=== PATIENT | male | born 2000 ===

== ENCOUNTER 2020-07-06 14:20 | Emergency (ER) | payer SELFPAY ==
[~2020-07-06] VITALS: Ht 180.3 cm; Wt 70.8 kg
[2020-07-06 14:46] LABS: BASOPHILS % (AUTO) 0 % (0-1); EOSINOPHILS % (AUTO) 1 % (1-7); LYMPHOCYTES % (AUTO) 11 % (22-44); MEAN CORPUSCULAR HEMOGLOBIN 31.9 pg (27.5-34.5); MEAN CORPUSCULAR HGB CONC 33.5 g/dL (33.2-36.2); MEAN PLATELET VOLUME 7.7 fL (7.4-10.4); MONOCYTES % (AUTO) 3 % (2-9); NEUTROPHILS % (AUTO) 86 % (42-75); PLATELET COUNT 251 x10^3/uL (130-400); RED BLOOD COUNT 4.86 x10^6/uL (4.38-5.82); RED CELL DISTRIBUTION WIDTH 12.9 % (9.4-14.8)
[2020-07-06 14:50] LABS: MD NO
[2020-07-06 14:55] LABS: ALANINE AMINOTRANSFERASE 16 U/L (12-78); ALBUMIN 4.5 g/dL (3.4-5.0); ANION GAP 8 mmol/L (5-15); CALCIUM 9.5 mg/dL (8.5-10.1); CHLORIDE 107 mmol/L (98-107)
[2020-07-06 14:58] LABS: ALKALINE PHOSPHATASE 64 U/L (45-117); BILIRUBIN,TOTAL 0.6 mg/dL (0.2-1.0); CREATININE 0.82 mg/dL (0.7-1.3); TOTAL PROTEIN 8.2 g/dL (6.4-8.2)
--- NOTE | 2020-07-06 15:14 | NUR ---
DUMPER: PT TO ROOM FROM LOBBY
[2020-07-06 15:27] VITALS: BP 135/85
--- NOTE | 2020-07-06 15:40 | NUR ---
break RN note: pt presents to ED with c/o disuria, difficulty urinating, "dribbling" , and suprapubic pain onset yesterday. pt denies any other symptoms. pt denies discharge. pt states "I had sex with someone who may have multiple partners two days before it started." pt provided urine sample in triage, sent to lab. bladder scan performed on arrival to room shows 333 mL residual. awaiting provider for further orders.
--- NOTE | 2020-07-06 15:49 | NUR ---
BREAK RN NOTE: KAELYN CALIXTO NOTIFIED BLADDER RESIDUAL 333ML S/P VOID IN TRIAGE. [employer] SUPERVISOR INSTRUCTED RN TO HAVE PT VOID AGAIN AND REASSESS BLADDER SCAN. REPORT GIVEN TO SARAH STEWART WHO IS ASSUMING CARE.
[2020-07-06 15:55] LABS: MICROSCOPIC AUTO
== END 2020-07-06 17:20 | disposition home or self-care (01) ==
LOC: ED 16:45
DX: N30.00 Acute cystitis without hematuria (principal); R10.9 Unspecified abdominal pain; R10.84 Generalized abdominal pain
CPT/HCPCS: 36415; 80053; 81001; 85025; 87077; 87086; 87186; 87491; 87591; 99284